=== PATIENT | female | born 1945 | race Caucasian/White ===

== ENCOUNTER 2019-02-07 09:28 | Emergency (ER) | payer MEDICARE ==
[~2019-02-07] VITALS: Ht 160 cm; Wt 68.0 kg
[2019-02-07 09:30] VITALS: BP_SYST 130
[2019-02-07] MEDS ORDERED: NACL 0.9% 1,000 ML IV ONE ×2 (09:38→11:15)
[2019-02-07] MEDS ORDERED: ASPIRIN 81 MG TAB.CHEW PO ONE (09:45)
[2019-02-07] MEDS ORDERED: ACET-2634 PO (09:53)
[2019-02-07] MEDS ORDERED: tylenol pm PO (09:53)
[2019-02-07] MEDS ORDERED: MEMA10TA PO (09:53)
[2019-02-07] MEDS ORDERED: LEVO75TA7 PO (09:53)
[2019-02-07] MEDS ORDERED: DONE10TA44 PO (09:53)
[2019-02-07] MEDS ORDERED: VITD2000 PO (09:53)
[2019-02-07] MEDS ORDERED: CYAN100010 PO (09:53)
[2019-02-07 10:31] LABS: BASOPHILS % (AUTO) 0.3 % (0.0-2.0); EOSINOPHILS # (AUTO) 0.1 K/uL (0.0-0.4); EOSINOPHILS % (AUTO) 0.7 % (0.0-4.0); HEMATOCRIT 40.8 % (36-48); HEMOGLOBIN 13.2 g/dL (12.0-16.0); LYMPHOCYTES # (AUTO) 1.7 K/uL (1.0-5.5); LYMPHOCYTES % (AUTO) 13.4 % (20.5-51.5); MEAN CORPUSCULAR HEMOGLOBIN 29 pg (27-31); MEAN CORPUSCULAR HGB CONC 32 % (32-36); MEAN CORPUSCULAR VOLUME 90 fL (79.0-98.0); MONOCYTES # (AUTO) 0.8 K/uL (0.0-1.0); MONOCYTES % (AUTO) 6.4 % (1.7-9.3); NEUTROPHILS # (AUTO) 10.3 K/uL (1.8-7.7); NEUTROPHILS % (AUTO) 79.2 % (40.0-70.0); PLATELET COUNT (AUTO) 265 K/uL (130-430); RED BLOOD CELL COUNT(AUTO) 4.55 MIL/uL (4.2-6.2); RED CELL DISTRIBUTION WIDTH 13.9 % (9.0-15.0); WHITE BLOOD COUNT (AUTO) 13.1 K/uL (4.8-10.8)
[2019-02-07 10:36] LABS: INR 1.1 (0.8-1.2); PROTHROMBIN TIME 11.1 SECS (9.5-12.5)
[2019-02-07 10:54] LABS: ANION GAP 13 (5-15); CALCIUM 8.9 mg/dL (8.4-11.0); CHLORIDE 101 mmol/L (98-107); CREATININE 0.84 mg/dL (0.55-1.30); GLUCOSE 103 mg/dL (70-99); POTASSIUM 3.1 mmol/L (3.5-5.1); SODIUM SERUM 139 mmol/L (136-145); UREA NITROGEN, BLOOD 17 mg/dL (8-21)
[2019-02-07 10:59] LABS: ALANINE AMINOTRANSFERASE 28 U/L (12-78); ALBUMIN 3.6 g/dL (3.4-4.8); AMYLASE 60 U/L (0-100); ASPARTATE AMINOTRANSFERASE 17 U/L (10-37); LIPASE 94 U/L (73-393); TOTAL BILIRUBIN 0.5 mg/dL (0.0-1.0)
[2019-02-07 11:02] LABS: ACETAMINOPHEN < 1 ug/mL (1-30); ALCOHOL, BLOOD < 3 mg/dL (<10)
[2019-02-07 11:10] LABS: BILIRUBIN,URINE 1+ (NEGATIVE); BLOOD, URINE 1+ (NEGATIVE); CLARITY/URINE CLEAR (CLEAR); COLOR,URINE YELLOW (YELLOW); GLUCOSE,URINE NEGATIVE (NEGATIVE); KETONES,URINE TRACE (NEGATIVE); LEUKOCYTE ESTERASE ,URINE NEGATIVE (NEGATIVE); NITRITE, URINE NEGATIVE (NEGATIVE); PROTEIN URINE 2+ (NEGATIVE)
[2019-02-07] MEDS ORDERED: cefTRIAXone 1 GM IVPB PREMIX 50 ML IV ONE (11:15)
[2019-02-07 11:22] LABS: BACTERIA,URINE FEW /HPF (None Seen); RBC,URINE 0-3 /HPF (0-3)
[2019-02-07 11:23] LABS: MUCUS,URINE 1+ /LPF (None Seen)
[2019-02-07 11:25] LABS: BARBITURATE, URINE NEGATIVE (NEG <=200); BENZODIAZEPINE, URINE POSITIVE (NEG <=150); CANNABINOID, URINE NEGATIVE (NEG <=50); COCAINE, URINE NEGATIVE (NEG <=150); METHAMPHETAMINES SCREEN,URINE NEGATIVE (NEG <=500); OPIATE, URINE NEGATIVE (NEG <=100); PHENCYCLIDINE SCREEN,URINE NEGATIVE (NEG <=25); UR TRICYCLIC ANTIDEPRESSANTS NEGATIVE (NEG <=300); URINE AMPHETAMINE NEGATIVE (NEG <=500); URINE METHADONE NEGATIVE (NEG <=200); URINE OXYCODONE SCREEN NEGATIVE (NEG <=100); URINE PROPOXYPHENE SCREEN NEGATIVE (NEG <=300)
[2019-02-07 13:21] VITALS: BP_SYST 135
== END 2019-02-07 13:21 | disposition short-term general hospital (02) ==
LOC: SED 09:28
DX: R41.82 Altered mental status, unspecified (principal); R55 Syncope and collapse; D72.829 Elevated white blood cell count, unspecified; R82.5 Elevated urine levels of drugs, medicaments and biological substances; F03.90 Unspecified dementia, unspecified severity, without behavioral disturbance, psychotic disturbance, mood disturbance, and anxiety; Z88.2 Allergy status to sulfonamides; Z79.899 Other long term (current) drug therapy
CPT/HCPCS: 36415; 70450; 71045; 80053; 80307; 81000; 82150; 82550; 83605; 83690; 84484; 85025; 85610; 85730; 87040; 87086; 93005; 96361; 96365; 99285; G0480; G0481; G0482; J0696; J7030

== ENCOUNTER 2020-12-06 09:03 | Emergency (ER) | payer MEDICARE ==
[~2020-12-06] VITALS: Ht 160 cm; Wt 56.7 kg
[~2020-12-06 09:03] MED LIST: ACET-2634 PO; CYAN100010 PO; DONE10TA44 PO; LEVO75TA7 PO; MEMA10TA PO; VITD2000 PO; tylenol pm PO
[2020-12-06 09:05] VITALS: BP_SYST 127
--- NOTE | 2020-12-06 09:05 | NUR ---
Patient to ER bed 6 to gown for evaluation. Side rails up.
--- NOTE | 2020-12-06 09:10 | NUR ---
KEON DIXON FROM [facility] REPORTING THAT PT HAS A MASS ON HER ABD RLQ THAT HAS BEEN THERE FOR 3 YEARS PER EMS. PT HAS ADVANCED DEMENTIA AND HAS BEEN ON HOSPICE CARE. PT IS IN NO APPARANT DISTRESS UPON ARRIVAL AND IS NON-VERBAL. V/S STABLE. PT IS AWAKE. Addendum: 12/06/20 at 0930 by [email or web address] KEON DIXON FROM [facility] REPORTING THAT PT HAS A MASS ON HER ABD RLQ THAT HAS BEEN THERE FOR 3 YEARS PER EMS. RED FUNGATING MASS CAME WITH DRESSING AND RED DRAINAGE. NO ACTIVE BLEEDING. PT HAS ADVANCED DEMENTIA AND HAS BEEN ON HOSPICE CARE. PT IS IN NO APPARANT DISTRESS UPON ARRIVAL AND IS NON-VERBAL. V/S STABLE. PT IS AWAKE.
--- NOTE | 2020-12-06 09:12 | NUR ---
ER DR. PRASAD AT THE BEDSIDE EXAMINING PT
--- NOTE | 2020-12-06 09:49 | NUR ---
Dr. Avendaño, [place] [facility] Doc, paged back in regards to pt status. Call transferred to Dr. Truong.
--- NOTE | 2020-12-06 10:30 | NUR ---
PT RESTING IN BED, NO S/SX OF DISTRESS. V/S STABLE
--- NOTE | 2020-12-06 10:50 | NUR ---
TRANSFER INFO [place] Isidro Xie [phone] eta [id number] SPOKE TO KATERYNA
--- NOTE | 2020-12-06 11:01 | NUR ---
REPORT GIVEN TO LYNNETTE GONCALVES CHARGE AT [facility]
--- NOTE | 2020-12-06 11:07 | NUR ---
ANDIE DAUGHTER SIMON FOR STATUS UPDATE
--- NOTE | 2020-12-06 11:12 | NUR ---
PER DAUGHTER THE PT HAS BEEN TREATED UNDER [facility]
--- NOTE | 2020-12-06 11:49 | NUR ---
Patient to be transferred to [facility]. Is being transferred due to higher level of care. Receiving facility has accepting physician and available space. ER physician has signed transfer form. Patient or responsible democrat has agreed to transfer and signed form. Patient belongings inventoried and will be sent with patient. Copy of nursing notes, lab reports, EKG, Physicians Orders and X-rays to be sent with patient. Report called to LYNNETTE GONCALVES at receiving facility. Receiving physician is DR. PARIKH. [facility] ambulance service has been called for transfer. ETA is [phone].
[2020-12-06 11:51] VITALS: BP_SYST 122
== END 2020-12-06 11:49 | disposition designated cancer center or children's hospital (05) ==
LOC: SED 09:03
DX: R93.89 Abnormal findings on diagnostic imaging of other specified body structures (principal); Z79.899 Other long term (current) drug therapy
CPT/HCPCS: 99285